=== PATIENT | male | born 1975 | race Caucasian/White ===

== ENCOUNTER 2025-05-08 11:46 | Observation (INO) ==
[2025-05-08 12:18] VITALS: BMI 26.7
--- NOTE | 2025-05-08 12:18 | DR.EXTPAIN ---
HPI Time seen Time Seen by Provider: 05/08/25 12:14 Complaint/Symptoms Chief Complaint Doctor Comments: Arrived here from the [facility] in [place] with maybe an infection of his right third finger the situation been going on for quite some time was sent here for further evaluation. ROS Review of Systems Constitutional: Other (right 3rd finger chemical burn) Eyes: No Symptoms Reported ENTM: No Symptoms Reported Respiratoy: No Symptoms Reported Cardiovascular: No Symptoms Reported Gastrointestinal/Abdominal: No Symptoms Reported Genitourinary: No Symptoms Reported Neurological: No Symptoms Reported Musculoskeletal: Right and Other (3rd finger chemical burn) Integumentary: Other (burn to r 3rd finger) Hematologic/Lymphatic: No Symptoms Reported Endocrine: No Symptoms Reported Psychiatric: No Symptoms Reported All Other Systems: Reviewed and Negative PE Vital Signs Vitals: Vital Signs Temperature 98.2 F Temperature 97.6 F Pulse Rate [Right] 75 Pulse Rate 84 Respiratory Rate 16 Respiratory Rate 16 Blood Pressure [Right Arm] 118/65 Blood Pressure 120/74 O2 Sat by Pulse Oximetry 98 O2 Sat by Pulse Oximetry 99 General Limitations: No Limitations General Appearance: In Distress (mild distress) Head Head Exam: Normal Inspection Eyes Eye exam: Normal Appearance ENT ENT Exam: Normal Exam, Normal Oropharynx and Normal External Ear Exam Neck Neck Exam: Normal Inspection Chest Chest Inspection: Normal Inspection Respiratory Respiratory Exam: Normal Lung Sounds Bilat Respiratory Exam: Bilateral: Clear to Auscultation Cardiovascular Cardiovascular Exam: Regular Rate Abdominal Exam Abdominal Exam: Normal Inspection Extremities Extremities Exam: Other (inflammed righ 3rd finger with drainage) Upper Extremities Shoulder Exam: Normal Inspection Arm Exam: Normal Inspection Elbow Exam: Normal Inspection Forearm Exam: Normal Inspection Hand Exam: Swelling (r third finger) and Erythema (r third finger) Lower Extremities Hip/Pelvis Exam: Normal Inspection Upper Leg Exam: Normal Inspection Knee Exam: Normal Inspection Lower Leg Exam: Normal Inspection Ankle Exam: Normal Inspection Foot/Toe Exam: Normal Inspection Gait Exam: Observed and Normal Back Back Exam: Normal Inspection Neurological Neurological Exam: Alert, Oriented X3 and CN II-XII Intact Psychiatric Psychiatric Exam: Normal Affect Skin Skin Exam: Warm, Dry and Intact Type of Lesion: Other (chemical burn r 3rd finger,eczema r hand and wrist) MDM Differential Diagnosis Differential Diagnosis: Other (chemical burn r third finger) COURSE Treatment Treatment: This patient will given started with Medrol hide 25 mg be in the ER and also was given Cleocin 600 mg IV x 1. This patient did not have a white count it was 8.5 the BUN was 13 creatinine 0.87 patient did not have a increased lactic acid level was 0.9 we did send him blood cultures and the patient was given Solu-Medrol 125 mg IV and we gave him Cleocin 600 mg IV in the ER spoke to Dr. Yarbrough of about this patient at 1750 he stated we could put him in and continue with the Cleocin and see what the response to be but he did I was going to put him on some low-dose steroids also but he stated that he did not want to add the steroids to this regiment. [facility] Labs Reviewed Laboratory Results Reviewed?: Yes 05/08/25 12:32 05/08/25 12:32 Laboratory: WBC 8.5 X10^3/uL (3.6-10.0) 05/08/25 12:32 RBC 4.40 X10^6/uL (4.7-6.0) L 05/08/25 12:32 Hgb 13.9 g/dL (13.5-18.0) 05/08/25 12:32 Hct 41.1 % (42.0-54.0) L 05/08/25 12:32 MCV 93.3 fL (80.0-100.0) 05/08/25 12:32 MCH 31.6 pg (27.0-34.0) 05/08/25 12:32 MCHC 33.9 g/dL (33.0-35.0) 05/08/25 12:32 RDW 13.2 % (11.6-16.5) 05/08/25 12:32 Plt Count 364 X10^3/uL (150.0-450.0) 05/08/25 12:32 MPV 8.3 fL (7.4-11.0) 05/08/25 12:32 Neut % (Auto) 60.6 % (42.0-75.0) 05/08/25 12:32 Lymph % (Auto) 25.9 % (21.0-51.0) 05/08/25 12:32 [place] % (Auto) 9.1 % (0.0-13.0) 05/08/25 12:32 Eos % (Auto) 3.6 % (0.9-2.9) H 05/08/25 12:32 Baso % (Auto) 0.8 % (0.2-1.0) 05/08/25 12:32 Neut # (Auto) 5.1 x10^3/uL (2.2-4.8) H 05/08/25 12:32 Lymph # (Auto) 2.2 X10^3/uL (1.3-2.9) 05/08/25 12:32 [place] # (Auto) 0.8 x10^3/uL (0.3-0.8) 05/08/25 12:32 Eos # (Auto) 0.3 x10^3/uL (0.0-0.2) H 05/08/25 12:32 Baso # (Auto) 0.1 X10^3/uL (0.0-0.1) 05/08/25 12:32 Absolute Nucleated RBC 0.1 /100WBC 05/08/25 12:32 Sodium 147 mmol/L (136-145) H 05/08/25 12:32 Corrected Sodium TNP 05/08/25 12:32 Potassium 4.0 mmol/L (3.5-5.1) 05/08/25 12:32 Chloride 110 mmol/L (98-107) H 05/08/25 12:32 Carbon Dioxide 31.0 mmol/L (21-32) 05/08/25 12:32 BUN 13 mg/dL (7-18) 05/08/25 12:32 Creatinine 0.87 mg/dL (0.70-1.30) 05/08/25 12:32 Est GFR (MDRD) Af Amer > 60 (>60) 05/08/25 12:32 Est GFR (MDRD) Non-Af > 60 (>60) 05/08/25 12:32 Glucose 91 mg/dL (65-99) 05/08/25 12:32 Lactic Acid 0.9 mmol/L (0.4-2.0) 05/08/25 12:32 Calcium 8.3 mg/dL (8.5-10.1) L 05/08/25 12:32 Corrected Calcium TNP 05/08/25 12:32 Total Bilirubin 0.50 mg/dL (0.2-1.0) 05/08/25 12:32 AST 22 Units/L (15-37) 05/08/25 12:32 ALT 38 Units/L (12-78) 05/08/25 12:32 Alkaline Phosphatase 43 Units/L (46-116) L 05/08/25 12:32 Total Protein 6.9 g/dL (6.4-8.2) 05/08/25 12:32 Albumin 3.5 g/dL (3.4-5.0) 05/08/25 12:32 Globulin 3.4 g/dL (2.5-4.5) 05/08/25 12:32 Albumin/Globulin Ratio 1.0 Ratio (1.1-2.1) L 05/08/25 12:32 Opioid Opioid Risk Tool Total: 0 Total Score Risk Category: Low Risk Copyright: Brett POE predicting aberrant behaviors Discharge Plan Diagnosis Discharge Problem: Chemical burn of finger of right hand Discharge Plan Patient Disposition: 09 ADMITTED INPATIENT Condition: Stable Health Concerns: Post Hospitalization: new medications and changes needed to prevent readmission or further decline. Pt educated and given instructions on all concerns. Plan of Treatment: Continue with present treatment and follow up plan. Pt is to keep follow up appointment as instructed and take medications as ordered. Orders to Discharge Patient Discharge Orders: Transfer (Routine); Ordered 05/08/25 Ordered By: Kris Kahn Follow ups/Referrals Follow ups/Referrals: NFD,None [Primary Care Provider] - 3 days Instructions Stand Alone Forms: Find Help Web Site, Post Hospital Follow Up Care Print Language: [id number]
[2025-05-08 12:51] LABS: MEAN PLATELET VOLUME 8.3 fL (7.4-11.0); RED CELL DISTRIBUTION WIDTH 13.2 % (11.6-16.5)
[2025-05-08 12:58] LABS: CREATININE 0.87 mg/dL (0.70-1.30); eGFR NON BLACK RACES > 60 (>60)
[2025-05-08] MEDS: CLEOCIN 600 MG IV PREMIX 600 MG/50 ML BAG IV ONE (15:29)
[2025-05-08] MEDS: CLEOCIN 600 MG IV PREMIX 600 MG/50 ML BAG IV SCH (22:58)
[2025-05-08] MEDS: MORPHINE SULFATE INJ 2 MG INJ IVP PRN (23:38)
[2025-05-08] MEDS: ZOFRAN INJ 4 MG VIAL IVP PRN (23:38)
[2025-05-09 07:10] LABS: MEAN PLATELET VOLUME 8.9 fL (7.4-11.0); RED CELL DISTRIBUTION WIDTH 12.7 % (11.6-16.5)
[2025-05-09 07:24] LABS: COR CA(FOR HYPOALB) 9.0 mg/dL (8.5-10.1); COR NA(FOR HYPERGLY) 143 mmol/L (136-145); CREATININE 0.78 mg/dL (0.70-1.30); eGFR NON BLACK RACES > 60 (>60)
[2025-05-09 08:24] LABS: PLATELET MORPHOLOGY COMMENT NORMAL (NORMAL)
[2025-05-09] MEDS: COLACE CAP 100 MG PO SCH (08:46)
[2025-05-09] MEDS: DIFLUCAN PO SCH (13:33)
[2025-05-09] MEDS: BACTROBAN TOPICAL OINT TOP SCH (13:33)
[2025-05-09] MEDS: PEPCID TAB 40 MG PO PRN (14:31)
[2025-05-09] MEDS: NS 250 ML IV 250 ML IV ONE ×2 (19:10→22:00)
[2025-05-10 05:27] LABS: MEAN PLATELET VOLUME 8.6 fL (7.4-11.0); RED CELL DISTRIBUTION WIDTH 13.5 % (11.6-16.5)
[2025-05-10 05:33] LABS: CREATININE 0.82 mg/dL (0.70-1.30); eGFR NON BLACK RACES > 60 (>60)
[2025-05-10 05:54] LABS: COR CA(FOR HYPOALB) 8.8 mg/dL (8.5-10.1)
[2025-05-11 04:03] VITALS: PULSE 72; RESP 19
[2025-05-11 04:49] LABS: MEAN PLATELET VOLUME 8.5 fL (7.4-11.0); RED CELL DISTRIBUTION WIDTH 13.3 % (11.6-16.5)
[2025-05-11 05:01] LABS: CREATININE 0.84 mg/dL (0.70-1.30); eGFR NON BLACK RACES > 60 (>60)
[2025-05-11 05:20] LABS: COR CA(FOR HYPOALB) 8.8 mg/dL (8.5-10.1)
[2025-05-11 07:31] VITALS: BP 108/67; TEMP 97.8; O2SAT 95
== END 2025-05-11 10:20 | disposition home or self-care (01) ==
LOC: MED/SURG 11:46 → ER 11:46 → MED/SURG 21:06
PROVIDERS: ADMIT Obstetrics & Gynecology Obstetrics; ATTEND Obstetrics & Gynecology Obstetrics
DX: D72.828 Other elevated white blood cell count; K21.9 Gastro-esophageal reflux disease without esophagitis; T49.0X5A Adverse effect of local antifungal, anti-infective and anti-inflammatory drugs, initial encounter; R73.09 Other abnormal glucose; L03.011 Cellulitis of right finger; E87.0 Hyperosmolality and hypernatremia; R79.89 Other specified abnormal findings of blood chemistry; E83.51 Hypocalcemia; B35.1 Tinea unguium